=== PATIENT | male | born 1935 | race Caucasian/White ===

== ENCOUNTER 2016-05-14 06:40 | Day surgery (SDC) | payer MEDICARE, OTHER ==
[~2016-05-14] VITALS: Ht 180.3 cm; Wt 91.1 kg
[2016-05-14] VITALS (11 sets, daily range): BP systolic 131–167; BP diastolic 56–81; PULSE 64–82; TEMP 97.4–98.8
[2016-05-14] MEDS ORDERED: PRILOSEC 20MG20 MG PO (07:26)
[2016-05-14] MEDS ORDERED: VISION VITAMINS1 TA1 PO (07:27)
[2016-05-14] MEDS ORDERED: HYGROTON 2525 MG/TAB PO (07:28)
[2016-05-14] MEDS ORDERED: LEXAPRO 10MG10 MG PO (07:30)
[2016-05-14] MEDS ORDERED: NORCO 325 MG-51 TAB PO (17:00)
[2016-05-15 05:21] VITALS: BP 149/73; PULSE 72; TEMP 98.2
== END 2016-05-15 10:10 | disposition home or self-care (01) ==
LOC: SDCO 06:40 → SURG 12:05 → SDCO 05-15 10:10
DX: D34 Benign neoplasm of thyroid gland (principal); I10 Essential (primary) hypertension; Z80.3 Family history of malignant neoplasm of breast; Z87.891 Personal history of nicotine dependence
CPT/HCPCS: OP; J0330; J0690; J1100; J2370; J2405; J2704; J3010; J7120